=== PATIENT | female | born 1970 | race Caucasian/White ===

== ENCOUNTER → 2019-09-08 15:08 | Outpatient (BNVA) | payer BC, SELFPAY | PROVIDERS: Family Provider Family Medicine; PCP Family Medicine; Visit Provider Internal Medicine Rheumatology | DX: Z79.899 Other long term (current) drug therapy (principal); R70.0 Elevated erythrocyte sedimentation rate; M19.90 Unspecified osteoarthritis, unspecified site; M25.551 Pain in right hip; M25.552 Pain in left hip; M25.561 Pain in right knee; M25.562 Pain in left knee; L71.9 Rosacea, unspecified | CPT/HCPCS: 36415; 82306; 85651; 86140; 99204 ==

== ENCOUNTER → 2020-08-11 11:07 | Outpatient (BNVA) | payer BC, SELFPAY | PROVIDERS: Family Provider Family Medicine; PCP Family Medicine; Visit Provider Nurse Practitioner Family | DX: M79.671 Pain in right foot (principal); Z98.890 Other specified postprocedural states | CPT/HCPCS: 73630 ==